=== PATIENT | female | born 1995 | race Caucasian/White ===

== ENCOUNTER 2019-05-26 08:51 | Outpatient (CLI) | payer OTHER ==
[~2019-05-26] VITALS: Ht 160 cm; Wt 67.3 kg
[~2019-05-26 08:51] MED LIST: ASPI-903 PO; PNV11TAB PO
[2019-05-26] MEDS ORDERED: ONDANSETRON 4 MG INJ IV PRN ×2 (10:00)
[2019-05-26] MEDS ORDERED: LACTATED RINGER'S 1,000 ML IV SCH (10:00)
[2019-05-26 10:45] VITALS: Ht 160 cm; Wt 67.3 kg
[2019-05-26 10:46] VITALS: BP 116/70; PULSE 91; RESP 18
== END 2019-05-26 13:30 | disposition home or self-care (01) ==
LOC: OBT 08:51 → L-D 08:51 → OBT 13:30
PROVIDERS: ATTEND Obstetrics & Gynecology
DX: O26.893 Other specified pregnancy related conditions, third trimester (principal); R10.2 Pelvic and perineal pain; Z3A.32 32 weeks gestation of pregnancy
CPT/HCPCS: 76818; 80053; 81001; 85025; 96360; 96361; J7120; Z7500; G0463